=== PATIENT | male | born 1990 | race Caucasian/White ===

== ENCOUNTER 2016-12-29 02:47 | Emergency (ER) | payer SELFPAY ==
[~2016-12-29] VITALS: Ht 177.8 cm; Wt 113.4 kg
[2016-12-29 05:56] VITALS: BP 124/64
== END 2016-12-29 05:57 | disposition home or self-care (01) ==
LOC: ED 02:47
DX: S92.001A Unspecified fracture of right calcaneus, initial encounter for closed fracture (principal); S93.401A Sprain of unspecified ligament of right ankle, initial encounter; F17.200 Nicotine dependence, unspecified, uncomplicated; Z71.6 Tobacco abuse counseling; W16.512A Jumping or diving into swimming pool striking water surface causing other injury, initial encounter; Y93.11 Activity, swimming; Y99.8 Other external cause status; Y92.34 Swimming pool (public) as the place of occurrence of the external cause
CPT/HCPCS: 99406; Q0092